=== PATIENT | male | born 1950 | race Caucasian/White ===

== ENCOUNTER 2017-04-29 22:34 | Inpatient (IN) | payer MEDICARE, MEDICAID ==
[~2017-04-29] VITALS: Ht 177.8 cm; Wt 65.5 kg
[~2017-04-29 22:34] MED LIST: DIGO50SO PO; LOVASTATIN PO; NITR0.4T6 PO; TAMS-12 PO; WARF4TAB41 PO
[2017-04-30] VITALS (7 sets, daily range): BP systolic 103–151; BP diastolic 51–87
[2017-04-30] MEDS ORDERED: IV NS 0.9% 1,000 ML IV PRN (00:02)
[2017-04-30] MEDS ORDERED: ENOXAPARIN SODIUM 40 MG/0.4 ML DISP.SYRIN SQ SCH (00:30)
[2017-04-30] MEDS ORDERED: ONDANSETRON HCL/PF 4 MG/2 ML VIAL IVP PRN (00:30)
[2017-04-30] MEDS ORDERED: SPIR25TA PO (03:41)
[2017-04-30] MEDS ORDERED: BENA20TA2 PO (03:47)
[2017-04-30] MEDS ORDERED: RIVA10TA PO (03:47)
[2017-04-30] MEDS ORDERED: METO100T3 PO (03:47)
[2017-04-30] MEDS ORDERED: NITROGLYCERIN PACKET 1 GM PACKET ONE (06:08)
[2017-04-30] MEDS: NITROGLYCERIN 30 GM TUBE TP SCH ×4 (06:13→23:32)
[2017-04-30] MEDS ORDERED: HYDROMORPHONE INJ 2 MG/ML DISP.SYRIN IV PRN (06:30)
[2017-04-30 07:17] LABS: BASOPHILS % (AUTO) 0.7 % (0.0-2.0); EOSINOPHILS # (AUTO) 0.1 /CMM (0.0-0.7); HEMATOCRIT 34 % (39-51); HEMOGLOBIN 11.7 g/dL (13.5-17.5); LYMPHOCYTES # (AUTO) 1.7 /CMM (0.8-4.8); LYMPHOCYTES % (AUTO) 33.9 % (20.0-44.0); MEAN CORPUSCULAR HEMOGLOBIN 33 PG (26.0-33.0); MEAN CORPUSCULAR HGB CONC 34 g/dl (31.0-36.0); MEAN CORPUSCULAR VOLUME 96 fL (80-96); MONOCYTES # (AUTO) 0.5 /CMM (0.1-1.30); MONOCYTES % (AUTO) 10.5 % (2.0-12.0); NEUTROPHILS # (AUTO) 2.5 /CMM (1.8-8.9); NEUTROPHILS % (AUTO) 51.9 % (43.0-81.0); PLATELET COUNT (AUTO) 238 /CMM (150-450); RDW COEFFICIENT OF VARIATION 13.6 (11.5-15.0); RED BLOOD CELL COUNT(AUTO) 3.58 MIL/uL (4.5-6.0); WHITE BLOOD COUNT (AUTO) 4.9 K/uL (4.3-11.0)
[2017-04-30 08:12] LABS: CREATININE 2.2 mg/dL (0.6-1.3); MAGNESIUM 2.1 mg/dL (1.8-2.4); PHOSPHORUS 3.3 mg/dL (2.5-4.9); POTASSIUM 4.1 mmol/L (3.5-5.1)
[2017-04-30 08:26] LABS: ALBUMIN 3.6 g/dL (3.4-5.0); BILIRUBIN,DIRECT 0.1 mg/dL (0.0-0.2); BILIRUBIN,TOTAL 0.3 mg/dL (0.2-1.0); TOTAL PROTEIN, SERUM 7.3 g/dL (6.4-8.2)
[2017-04-30] MEDS: FUROSEMIDE 40 MG TABLET PO SCH (08:56)
[2017-04-30] MEDS: VALSARTAN 40 MG TABLET PO SCH (08:56)
[2017-04-30] MEDS: CARVEDILOL 6.25 MG TABLET PO SCH ×2 (08:56→21:00)
[2017-04-30] MEDS ORDERED: ASPIRIN EC 81 MG TABLET.DR PO SCH (09:00)
[2017-04-30] MEDS ORDERED: REGADENOSON 0.4 MG/5 ML DISP.SYRIN IVP ONE (11:00)
[2017-04-30 13:25] LABS: APPEARANCE,URINE CLEAR (CLEAR); BILIRUBIN,URINE NEGATIVE (NEGATIVE); BLOOD, URINE NEGATIVE Ery/uL (NEGATIVE); COLOR,URINE YELLOW (YELLOW); KETONES,URINE NEGATIVE (NEGATIVE); LEUKOCYTE ESTERASE ,URINE NEGATIVE (NEGATIVE); NITRITE, URINE NEGATIVE (NEGATIVE); PROTEIN,URINE NEGATIVE (NEGATIVE); UGLUCOSE NEGATIVE (NEGATIVE); UROBILINOGEN,URINE 0.2 EU/dL (0.2)
[2017-04-30] MEDS: RIVAROXABAN 10 MG TABLET PO SCH (16:49)
[2017-04-30] MEDS: TAMSULOSIN 0.4 MG CAP.SR.24H PO SCH (22:03)
[2017-04-30] MEDS: ACETAMINOPHEN 325 MG TABLET PO PRN (23:37)
[2017-05-01] VITALS: BP 114/69
[2017-05-01 05:34] VITALS: BP 112/65
[2017-05-01] MEDS: NITROGLYCERIN 30 GM TUBE TP SCH ×3 (06:00→18:00)
[2017-05-01 08:00] VITALS: BP 115/73
[2017-05-01] MEDS: FUROSEMIDE 40 MG TABLET PO SCH (09:09)
[2017-05-01] MEDS: CARVEDILOL 6.25 MG TABLET PO SCH ×2 (09:09→21:19)
[2017-05-01] MEDS: VALSARTAN 40 MG TABLET PO SCH (09:10)
[2017-05-01] MEDS: ACETAMINOPHEN 325 MG TABLET PO PRN ×2 (13:49→21:54)
[2017-05-01 14:14] LABS: BASOPHILS % (AUTO) 1.1 % (0.0-2.0); EOSINOPHILS # (AUTO) 0.1 /CMM (0.0-0.7); EOSINOPHILS % (AUTO) 2.2 % (0.0-6.0); HEMATOCRIT 36 % (39-51); HEMOGLOBIN 12.4 g/dL (13.5-17.5); LYMPHOCYTES # (AUTO) 1.3 /CMM (0.8-4.8); LYMPHOCYTES % (AUTO) 28.8 % (20.0-44.0); MEAN CORPUSCULAR HEMOGLOBIN 33 PG (26.0-33.0); MEAN CORPUSCULAR HGB CONC 34 g/dl (31.0-36.0); MEAN CORPUSCULAR VOLUME 96 fL (80-96); MONOCYTES # (AUTO) 0.4 /CMM (0.1-1.30); MONOCYTES % (AUTO) 9.5 % (2.0-12.0); NEUTROPHILS # (AUTO) 2.7 /CMM (1.8-8.9); NEUTROPHILS % (AUTO) 58.4 % (43.0-81.0); PLATELET COUNT (AUTO) 278 /CMM (150-450); RDW COEFFICIENT OF VARIATION 13.8 (11.5-15.0); RED BLOOD CELL COUNT(AUTO) 3.79 MIL/uL (4.5-6.0); WHITE BLOOD COUNT (AUTO) 4.5 K/uL (4.3-11.0)
[2017-05-01 14:32] LABS: CALCIUM, SERUM 9.6 mg/dL (8.5-10.1); CREATININE 1.6 mg/dL (0.6-1.3); MAGNESIUM 1.6 mg/dL (1.8-2.4); POTASSIUM 4.4 mmol/L (3.5-5.1)
[2017-05-01 14:33] LABS: IRON, SERUM 86 ug/dl (50-175); TOTAL IRON BINDING CAPACITY 342 ug/dl (250-450)
[2017-05-01 14:40] LABS: THYROID STIMULATING HORMONE 3.457 uIU/mL (0.358-3.74)
[2017-05-01 16:00] VITALS: BP 119/72
[2017-05-01] MEDS ORDERED: Magnesium 1GM/D5W 100ML PREMIX 100 ML IV SCH (16:48)
[2017-05-01] MEDS: MUPIROCIN OINT 2% 22 GM TUBE SCH ×2 (17:05→21:20)
[2017-05-01] MEDS: RIVAROXABAN 10 MG TABLET PO SCH (17:06)
[2017-05-01 20:00] VITALS: BP 106/59
[2017-05-01] MEDS: TAMSULOSIN 0.4 MG CAP.SR.24H PO SCH (21:18)
[2017-05-01] MEDS: ZOLPIDEM TARTRATE 5 MG TABLET PO PRN (21:51)
[2017-05-02] MEDS: NITROGLYCERIN 30 GM TUBE TP SCH ×4 (05:56→16:37)
[2017-05-02 08:00] VITALS: BP 119/69
[2017-05-02] MEDS: CARVEDILOL 6.25 MG TABLET PO SCH ×2 (09:22→21:00)
[2017-05-02] MEDS: FUROSEMIDE 40 MG TABLET PO SCH (09:22)
[2017-05-02] MEDS: VALSARTAN 40 MG TABLET PO SCH (09:22)
[2017-05-02] MEDS: MUPIROCIN OINT 2% 22 GM TUBE SCH ×2 (09:23→21:53)
[2017-05-02] MEDS: ACETAMINOPHEN 325 MG TABLET PO PRN ×2 (11:17→21:54)
[2017-05-02 12:06] LABS: BASOPHILS % (AUTO) 1.1 % (0.0-2.0); EOSINOPHILS # (AUTO) 0.1 /CMM (0.0-0.7); EOSINOPHILS % (AUTO) 2.4 % (0.0-6.0); HEMATOCRIT 39 % (39-51); HEMOGLOBIN 13.1 g/dL (13.5-17.5); LYMPHOCYTES # (AUTO) 1.3 /CMM (0.8-4.8); LYMPHOCYTES % (AUTO) 28.7 % (20.0-44.0); MEAN CORPUSCULAR HEMOGLOBIN 32 PG (26.0-33.0); MEAN CORPUSCULAR HGB CONC 34 g/dl (31.0-36.0); MEAN CORPUSCULAR VOLUME 96 fL (80-96); MONOCYTES # (AUTO) 0.4 /CMM (0.1-1.30); MONOCYTES % (AUTO) 9.5 % (2.0-12.0); NEUTROPHILS # (AUTO) 2.5 /CMM (1.8-8.9); NEUTROPHILS % (AUTO) 58.3 % (43.0-81.0); PLATELET COUNT (AUTO) 276 /CMM (150-450); RDW COEFFICIENT OF VARIATION 13.6 (11.5-15.0); RED BLOOD CELL COUNT(AUTO) 4.04 MIL/uL (4.5-6.0); WHITE BLOOD COUNT (AUTO) 4.4 K/uL (4.3-11.0)
[2017-05-02 12:18] LABS: CALCIUM, SERUM 9.3 mg/dL (8.5-10.1); CREATININE 1.5 mg/dL (0.6-1.3); MAGNESIUM 1.8 mg/dL (1.8-2.4); PHOSPHORUS 3.6 mg/dL (2.5-4.9); POTASSIUM 4.3 mmol/L (3.5-5.1)
[2017-05-02 16:00] VITALS: BP 124/78
[2017-05-02] MEDS: RIVAROXABAN 10 MG TABLET PO SCH (16:37)
[2017-05-02 20:00] VITALS: BP 103/61
[2017-05-02] MEDS: ZOLPIDEM TARTRATE 5 MG TABLET PO PRN (21:53)
[2017-05-02] MEDS: TAMSULOSIN 0.4 MG CAP.SR.24H PO SCH (21:54)
[2017-05-03] MEDS: NITROGLYCERIN 30 GM TUBE TP SCH ×4 (05:14→17:55)
[2017-05-03 08:00] VITALS: BP 109/62
[2017-05-03] MEDS: CARVEDILOL 6.25 MG TABLET PO SCH ×2 (08:37→22:33)
[2017-05-03] MEDS: VALSARTAN 40 MG TABLET PO SCH (08:37)
[2017-05-03] MEDS: MULTIVITAMINS,THERAGRAN 1 UDTAB TABLET PO SCH (08:43)
[2017-05-03] MEDS: FUROSEMIDE 40 MG TABLET PO SCH (08:43)
[2017-05-03] MEDS: MUPIROCIN OINT 2% 22 GM TUBE SCH ×2 (08:44→21:00)
[2017-05-03 09:43] LABS: BASOPHILS % (AUTO) 0.6 % (0.0-2.0); EOSINOPHILS # (AUTO) 0.1 /CMM (0.0-0.7); EOSINOPHILS % (AUTO) 3.1 % (0.0-6.0); HEMATOCRIT 40 % (39-51); HEMOGLOBIN 13.4 g/dL (13.5-17.5); LYMPHOCYTES # (AUTO) 1.4 /CMM (0.8-4.8); LYMPHOCYTES % (AUTO) 32.2 % (20.0-44.0); MEAN CORPUSCULAR HEMOGLOBIN 32 PG (26.0-33.0); MEAN CORPUSCULAR HGB CONC 34 g/dl (31.0-36.0); MEAN CORPUSCULAR VOLUME 96 fL (80-96); MONOCYTES # (AUTO) 0.4 /CMM (0.1-1.30); MONOCYTES % (AUTO) 8.4 % (2.0-12.0); NEUTROPHILS # (AUTO) 2.5 /CMM (1.8-8.9); NEUTROPHILS % (AUTO) 55.7 % (43.0-81.0); PLATELET COUNT (AUTO) 272 /CMM (150-450); RDW COEFFICIENT OF VARIATION 13.5 (11.5-15.0); RED BLOOD CELL COUNT(AUTO) 4.16 MIL/uL (4.5-6.0); WHITE BLOOD COUNT (AUTO) 4.5 K/uL (4.3-11.0)
[2017-05-03 09:55] LABS: CALCIUM, SERUM 9.4 mg/dL (8.5-10.1); CREATININE 1.9 mg/dL (0.6-1.3); MAGNESIUM 1.8 mg/dL (1.8-2.4); PHOSPHORUS 3.1 mg/dL (2.5-4.9); POTASSIUM 3.9 mmol/L (3.5-5.1)
[2017-05-03 16:00] VITALS: BP 110/69
[2017-05-03] MEDS: RIVAROXABAN 10 MG TABLET PO SCH (16:16)
[2017-05-03 20:00] VITALS: BP 142/93
[2017-05-03] MEDS: TAMSULOSIN 0.4 MG CAP.SR.24H PO SCH (22:32)
[2017-05-04] MEDS: NITROGLYCERIN 30 GM TUBE TP SCH ×3 (06:00→12:00)
[2017-05-04 08:00] VITALS: BP 119/71
[2017-05-04] MEDS: VALSARTAN 40 MG TABLET PO SCH (09:03)
[2017-05-04] MEDS: FUROSEMIDE 40 MG TABLET PO SCH (09:03)
[2017-05-04] MEDS: MULTIVITAMINS,THERAGRAN 1 UDTAB TABLET PO SCH (09:03)
[2017-05-04] MEDS: CARVEDILOL 6.25 MG TABLET PO SCH (09:04)
[2017-05-04] MEDS: MUPIROCIN OINT 2% 22 GM TUBE SCH (09:04)
[2017-05-04 12:00] VITALS: BP 115/58
[2017-05-04] MEDS ORDERED: VALS40TA4 PO (12:13)
[2017-05-04] MEDS ORDERED: FURO40TA5 PO (12:13)
== END 2017-05-04 16:00 | disposition home health service (06) | DRG 205 ==
LOC: TELE 04-30 00:37 → MED 04-30 12:23
PROVIDERS: ADMIT Nurse Practitioner Acute Care; ATTEND Nurse Practitioner Acute Care
DX: M94.0 Chondrocostal junction syndrome [Tietze] (principal); N17.0 Acute kidney failure with tubular necrosis; D68.59 Other primary thrombophilia; I42.9 Cardiomyopathy, unspecified; I50.42 Chronic combined systolic (congestive) and diastolic (congestive) heart failure; I48.91 Unspecified atrial fibrillation; I13.0 Hypertensive heart and chronic kidney disease with heart failure and stage 1 through stage 4 chronic kidney disease, or unspecified chronic kidney disease; I48.92 Unspecified atrial flutter; D64.9 Anemia, unspecified; F17.210 Nicotine dependence, cigarettes, uncomplicated; Z79.01 Long term (current) use of anticoagulants; Z95.810 Presence of automatic (implantable) cardiac defibrillator; D63.8 Anemia in other chronic diseases classified elsewhere; J06.9 Acute upper respiratory infection, unspecified; S91.309A Unspecified open wound, unspecified foot, initial encounter; X58.XXXA Exposure to other specified factors, initial encounter; Y93.9 Activity, unspecified; Y92.009 Unspecified place in unspecified non-institutional (private) residence as the place of occurrence of the external cause
CPT/HCPCS: 36415; 71010-TC; 76770-TC; 80048-TC; 80061-TC; 80076-TC; 81000-TC; 83540-TC; 83735-TC; 84100-TC; 84443-TC; 84484-TC; 85025-TC; 87081-TC; 87400; 93307-TC; 93970-TC; A9502; J2785; J3475; J7030; J7050; Z7610

== ENCOUNTER 2017-06-03 22:43 | Inpatient (IN) | payer MEDICARE, MEDICAID ==
[~2017-06-03] VITALS: Ht 177.8 cm; Wt 64.4 kg
[~2017-06-03 22:43] MED LIST changes: -DIGO50SO PO; +FURO40TA5 PO; -LOVASTATIN PO; +METO100T3 PO; +RIVA10TA PO; +VALS40TA4 PO; -WARF4TAB41 PO
--- NOTE | 2017-06-03 22:50 | NUR ---
PATIENT RECEIVED VIA EMS WITH CHEST PAIN OF 5/10 NON RADIATING NEAR HEART. NO SOB NOTED WITH ADEQUATE CHEST RISE/FALL. A/O X2 CONFUSED. A-FIB ON THE TELE. WILL CONTINUE TO MONITOR FOR ANY CHANGES.
[2017-06-03] MEDS ORDERED: DILTIAZEM HCL 50 MG IV IV ONE (23:00)
[2017-06-03] MEDS ORDERED: DILTIAZEM HCL 25 MG IV ONE ×2 (23:00→23:20)
--- NOTE | 2017-06-03 23:11 | NUR ---
LAB AT BEDSIDE FOR DRAW
[2017-06-03] MEDS ORDERED: DILTIAZEM HCL 50 MG IV ONE (23:19)
[2017-06-03 23:22] LABS: BASOPHILS % (AUTO) 0.6 % (0.0-2.0); EOSINOPHILS # (AUTO) 0.1 /CMM (0.0-0.7); EOSINOPHILS % (AUTO) 1.4 % (0.0-6.0); HEMATOCRIT 38 % (39-51); HEMOGLOBIN 12.9 g/dL (13.5-17.5); LYMPHOCYTES % (AUTO) 37.3 % (20.0-44.0); MEAN CORPUSCULAR HEMOGLOBIN 32 PG (26.0-33.0); MEAN CORPUSCULAR HGB CONC 34 g/dl (31.0-36.0); MEAN CORPUSCULAR VOLUME 95 fL (80-96); MONOCYTES # (AUTO) 0.7 /CMM (0.1-1.30); MONOCYTES % (AUTO) 12.4 % (2.0-12.0); NEUTROPHILS # (AUTO) 2.6 /CMM (1.8-8.9); NEUTROPHILS % (AUTO) 48.3 % (43.0-81.0); PLATELET COUNT (AUTO) 264 /CMM (150-450); RDW COEFFICIENT OF VARIATION 13.2 (11.5-15.0); RED BLOOD CELL COUNT(AUTO) 4.07 MIL/uL (4.5-6.0); WHITE BLOOD COUNT (AUTO) 5.4 K/uL (4.3-11.0)
[2017-06-03] MEDS ORDERED: DILTIAZEM HCL IV 125 MG in IV D5W 100 ML IV PRN (23:30)
[2017-06-03 23:33] LABS: CALCIUM, SERUM 9.3 mg/dL (8.5-10.1); CARBON DIOXIDE 27 mmol/L (21-32); CHLORIDE 108 mmol/L (98-107); CREATININE 1.7 mg/dL (0.6-1.3); GLUCOSE 115 mg/dL (74-106); POTASSIUM 3.8 mmol/L (3.5-5.1); SODIUM SERUM 144 mmol/L (136-145); UREA NITROGEN, BLOOD 28 mg/dL (7-18)
[2017-06-03 23:41] LABS: TROPONIN I < 0.017 ng/mL (0.00-0.056)
[2017-06-03 23:50] LABS: D-DIMER 0.49 mg/L(FEU (0.17-0.50); INR 0.97 (0.87-1.13); PROTHROMBIN TIME 10.1 SECS (9.5-12.7)
--- NOTE | 2017-06-04 00:15 | NUR ---
er spoke to sadi malone regarding pt admission.
[2017-06-04] MEDS ORDERED: Z GUARD REMEDY 2 OZ OINT TP PRN (00:30)
[2017-06-04] MEDS ORDERED: HYDROCODONE/APAP 5/325MG 1 EACH TABLET PO PRN (00:30)
[2017-06-04] MEDS ORDERED: MAG HYDROX/AL HYDROX/SIMETH 30 ML UDC PO PRN (00:30)
[2017-06-04] MEDS ORDERED: ACETAMINOPHEN 325 MG TABLET PO PRN (00:30)
[2017-06-04] MEDS ORDERED: MAGNESIUM HYDROXIDE 30 ML UDC PO PRN (00:30)
[2017-06-04] MEDS ORDERED: ONDANSETRON HCL/PF 4 MG/2 ML VIAL IVP PRN (00:30)
--- NOTE | 2017-06-04 01:40 | NUR ---
PATIENT WITH NO C/O PAIN. NO SOB NOTED WITH ADEQUATE CHEST RISE/FALL. VITALS WNL. WILL CONTINUE TO MONITOR FOR ANY CHANGES UNTIL TRANSFER
--- NOTE | 2017-06-04 01:45 | NUR ---
REPORT GIVEN TO EDMUNDO. WILL TRANSFER PATIENT TO [facility] ROOM 112-1 NOW.
[2017-06-04 02:00] VITALS: BP 116/66
--- NOTE | 2017-06-04 02:30 | NUR ---
RN NOTE SPOKE TO CAMILO BRO NP AND NOTIFIED THAT PT HR IS CONTROLLED AFIB @ 70. TOLD TO KEEP CARDIZEM DRIP @ 15MG/HR. READ BACK ORDERS AND WILL KEEP PT ON CARDIZEM DRIP @ 15MG/HR.
[2017-06-04 04:00] VITALS: BP 151/85
--- NOTE | 2017-06-04 06:48 | NUR ---
RN NOTES WILL ENDORSE TO DAY SHIFT THAT PATIENT CAME FROM THE ER WITH THE CARDIZEM IV BAG AND WAS NOT SCANNED IN THE [facility]. BAG STILL INFUSING
[2017-06-04] MEDS ORDERED: VALS40TA4 PO (07:31)
[2017-06-04] MEDS ORDERED: METO25TA6 PO (07:31)
[2017-06-04] MEDS ORDERED: AMIO200T2 PO (07:31)
[2017-06-04] MEDS ORDERED: FURO40TA5 PO (07:31)
[2017-06-04 08:00] VITALS: BP 138/79
[2017-06-04] MEDS ORDERED: DILTIAZEM HCL 25 MG IV IV PRN (08:30)
--- NOTE | 2017-06-04 09:27 | NUR ---
DISCUSSED THOROUGHLY WITH PT ABOUT CODE STATUS PM SHIFT RN AT BEDSIDE TOO A WITNESS, PT WANTS FULL CODE TREATMENT INCLUDING CPR AND INTUBATION IN CASE OF EMERGENCY. ORDERS PLACED.
--- NOTE | 2017-06-04 09:47 | NUR ---
PT REFUSING TO BE CONNECTED TO CARDIZEM DRIP. HE IS AMBULATING AND STATES "I CANNOT STAY STILL." STEADY GAIT, SOMEWHAT ANXIOUS BUT NON AGGRESSIVE. I EXPLAINED TO HIM IN DEPTH WHAT THE DRIP IF FOR AND HOW IT WILL HELP TO TREAT HIS INITIAL C/O OF CHEST PAIN AND HOSPITAL DIAGNOSIS, HE STATES HE WANTS TO GO AND IS THINKING OF SIGNING AMA, ENCOURAGED HIM TO STAY FOR TREATMENT AND THAT ONE NIGHT OF TREATMENT MAY NOT BE ENOUGH TO FIND THE REASON FOR HIS CHEST PAIN.
--- NOTE | 2017-06-04 10:08 | NUR ---
PT KEEP PULLING OFF LEADS FROM PORTABLE BILLING CLERK. I EXPLAINED TO HIM WHAT IT IS FOR AND ITS IMPORTANCE IN SHOWING US HIS HEART RHYTHM AND RATE. HE AGREED EARLIER THIS MORNING TO KEEP IT ON (2ND TIME IM RECONNECTING THE LEADS), BUT HE STILL REMOVED IT. NOTED HE IS ANXIOUS EASILY AGITATED, BUT NON AGGRESSIVE AT THIS TIME.
--- NOTE | 2017-06-04 10:39 | NUR ---
PT REMOVED THE WHOLE TELEMETRY BOX, HE IS REFUSING TO LET ME PUT IT BACK ON, SAYING HE CANNOT DO ANYTING WITH THAT THING ON. HE IS PACING THE ROOM. STRANGE ACTIVITY, VITALS ARE STABLE. NO SIGNS OF DISTRESS, BUT HE IS EASILY AGITATED AT THIS POINT.
[2017-06-04] MEDS ORDERED: VALSARTAN 40 MG TABLET PO SCH (11:00)
[2017-06-04] MEDS ORDERED: RIVAROXABAN 10 MG TABLET PO SCH (11:00)
[2017-06-04] MEDS ORDERED: FUROSEMIDE 40 MG TABLET PO SCH (11:00)
[2017-06-04] MEDS: METOPROLOL TARTRATE 25 MG TABLET PO SCH ×2 (11:33→16:50)
--- NOTE | 2017-06-04 11:46 | NUR ---
Social service consult requested by Dr. Hastings for homelessness. Pt. is a 66 year old male who was admitted to [facility] for chest pain. Pt. is alert and oriented x 4. SW is familiar with pt. from a previous admission. Pt. is cooperative and pleasant during the assessment. Pt. receives approximately $770 in SSI per month. Pt. states he would like placement. SW informed oil field caser Ferny that pt. is interested in going to [facility]. Pt. denies using drugs at this time. Pt. used to use cocaine in the past. Pt. drinks approximately 2 to 3 beers every few weeks. Pt. denies suicidal/homicidal ideations and visual/auditory hallucinations at this time. No other social service needs are requested at this time. SW is available if needed. field project manager to arrange for SNF placement.
--- NOTE | 2017-06-04 12:26 | NUR ---
PT REQUESTING TO SIGN AMA. I EXPLAINED TO HIM THE IMPORTANCE OF HIS TREATMENTS EXTENSIVELY. HE IS SEVERELY FOCUSED ON HIS MONEY STATING THAT HIS FRIEND HAS HIS MONEY AND THAT HE NEEDS TO GO GET IT FROM HIM. PAGING FOR PRIMARY MD TO NOTIFY. Addendum: 06/04/17 at 1307 by VIRAL GOMEZ RN PT CHANGES HIS MIND, AFTER SEEING LUNCH IN PLACE. HE HAS HIS PANTS ON BUT DOES NOT WANT OT PUT HIS BELT ON SO IT KEEPS FALLING DOWN, EASILY AGITATED WHEN I OFFERED TO HELP HIM PLACE THE BELT TO KEEP HIS PANTS UP. I ASKED DR. CHINO IF HE WANTS A PSYCH CONSULT MD STATES ITS NOT NECESSARY AT THIS POINT BUT TO KEEP A CLOSE EYE ON HIM.
[2017-06-04 16:00] VITALS: BP 144/83
[2017-06-04 16:50] VITALS: BP 144/83
--- NOTE | 2017-06-04 17:58 | NUR ---
PT AGITATED AND STATES THAT HE JUST WANTS TO LEAVE AMA, HE PACKED ALL OF HIS BELONGINGS DRESSED HIMSELF AND WALKS OUT, I'VE BEEN EXPLAINING TO HIM ENCOURAGING HIM TO STAY ALL DAY BUT HE IS FOCUSED ON TRYING TO FIND HIS MONEY WHICH HE STATES THAT HIS FRIEND HAS AND HE HAS TO GO. HELD HIM LONG ENOUGH TO HAVE HIM SIGN THE AMA FORM, I WENT TO GET SUPPLIES TO DC IV AND REMOVE ARM BAND AND PT LEFT THE ROOM BY THE TIME I GOT BACK. WENT TO LOBBY TO SEARCH FOR HIM BUT HE WAS NOT THERE.
--- NOTE | 2017-06-04 18:07 | NUR ---
SECURITY NOTIFIED OF AMA PATIENT WITH THE ID, AND THEY DID ROUND BUT ARE UNABLE TO LOCATE THE PATIENT. NOTIFIED SOFTWARE PACKAGING ENGINEER LEXI WHO SAID TO CALL [employer] TO REPORT THE INCIDENT DUE TO HIM STILL HAVING AN IV AND ARM BAND. CALLED [phone] AND REPORTED THE INCIDENT TO [facility][id number] WHO STATED BECAUSE HE DOES NOT HAVE AN ADDRESS THEY WILL BROADCAST THE DESCRIPTION OF THE PATIENT TO DISPATCH. [employer] INFO INCIDENT REFERENCE NUMBER: [id number] STONE CARVER ID NUMBER: [id number] HOSPITAL INCIDENT REPORT ALSO FILED.
--- NOTE | 2017-06-04 18:36 | NUR ---
ALSO NOTIFIED ER CHARGE NURSE IF THE PATIENT COMES BACK INTO ER BY CHANGE TO DC THE IV. GAVE A DESCRIPTION AND PT NAME.
[2017-06-05] MEDS ORDERED: TAMSULOSIN 0.4 MG CAP.SR.24H PO SCH (09:00)
== END 2017-06-04 17:56 | disposition left against medical advice (07) | DRG 308 ==
LOC: ER 22:43 → TELE-TD 06-04 00:36 → MEDSG1 06-04 12:13
PROVIDERS: ADMIT Nurse Practitioner Acute Care; ATTEND Nurse Practitioner Acute Care
DX: I48.91 Unspecified atrial fibrillation (principal); N17.0 Acute kidney failure with tubular necrosis; I50.22 Chronic systolic (congestive) heart failure; I11.0 Hypertensive heart disease with heart failure; Z95.1 Presence of aortocoronary bypass graft; Z95.810 Presence of automatic (implantable) cardiac defibrillator; F17.210 Nicotine dependence, cigarettes, uncomplicated; Z91.14 Patient's other noncompliance with medication regimen; R07.9 Chest pain, unspecified
CPT/HCPCS: 36415; 71010-TC; 80048-TC; 84484-TC; 85025-TC; 85378-TC; 85730-TC; 87081-TC; J3490; J7060; Z7610

== ENCOUNTER 2017-12-17 01:39 | Inpatient (IN) | payer MEDICARE, MEDICAID ==
[~2017-12-17] VITALS: Ht 177.8 cm; Wt 72.6 kg
[~2017-12-17 01:39] MED LIST changes: +AMIO200T2 PO; -METO100T3 PO; +METO25TA6 PO; +NITR0.4T48 PO; -NITR0.4T6 PO
--- NOTE | 2017-12-17 02:00 | NUR ---
[address] FOR INTERMITENT PRESSURE LIKE CHEST PAIN X 2 DAYS. PER RA GAVE ASA 162 AND NITRO SPRAY X3 PAIN 8/10 ON ARRIVAL. PT IS AAOX4. SKIN WNL. PT PLACED ON VENEER DRIER TAILER AND POX, PT NOTED TO BE IN RAPID A-FIB. RESP EVEN AND UNALBORED. NO S/S OF ACUTE DISTRESS NOTED. PT DENIES N/V/D. -DIZZINESS. PT SAFETY AND COMFORT MEASURES IN PLACE. AWAITING MD FOR EVAL.
[2017-12-17 02:15] LABS: BASOPHILS # (AUTO) 0.1 /CMM (0.0-0.2); BASOPHILS % (AUTO) 0.9 % (0.0-2.0); EOSINOPHILS % (AUTO) 0.9 % (0.0-6.0); HEMATOCRIT 37 % (39-51); HEMOGLOBIN 12.7 g/dL (13.5-17.5); LYMPHOCYTES # (AUTO) 1.2 /CMM (0.8-4.8); LYMPHOCYTES % (AUTO) 19.9 % (20.0-44.0); MEAN CORPUSCULAR HEMOGLOBIN 32 PG (26.0-33.0); MEAN CORPUSCULAR HGB CONC 34 g/dl (31.0-36.0); MEAN CORPUSCULAR VOLUME 94 fL (80-96); MONOCYTES # (AUTO) 0.5 /CMM (0.1-1.30); MONOCYTES % (AUTO) 7.9 % (2.0-12.0); NEUTROPHILS # (AUTO) 4.3 /CMM (1.8-8.9); NEUTROPHILS % (AUTO) 70.4 % (43.0-81.0); PLATELET COUNT (AUTO) 305 /CMM (150-450); RED BLOOD CELL COUNT(AUTO) 3.98 MIL/uL (4.5-6.0); WHITE BLOOD COUNT (AUTO) 6.2 K/uL (4.3-11.0)
[2017-12-17 02:28] LABS: CALCIUM, SERUM 8.7 mg/dL (8.5-10.1); CARBON DIOXIDE 21 mmol/L (21-32); CHLORIDE 104 mmol/L (98-107); CREATININE 3.2 mg/dL (0.6-1.3); GLUCOSE 130 mg/dL (74-106); POTASSIUM 3.5 mmol/L (3.5-5.1); SODIUM SERUM 140 mmol/L (136-145); UREA NITROGEN, BLOOD 58 mg/dL (7-18)
[2017-12-17] MEDS ORDERED: IV NS 0.9% 1,000 ML BAG IV ONE ×2 (02:30→05:00)
[2017-12-17 02:41] LABS: TROPONIN I < 0.017 ng/mL (0.00-0.056)
--- NOTE | 2017-12-17 04:50 | NUR ---
REPORT GIVEN TO LEAD DATABASE DEVELOPERCRISTELA PIERCE FOR RUSTAM
[2017-12-17] MEDS ORDERED: MAG HYDROX/AL HYDROX/SIMETH 30 ML UDC PO PRN (05:00)
[2017-12-17] MEDS ORDERED: MAGNESIUM HYDROXIDE 30 ML UDC PO PRN (05:00)
[2017-12-17] MEDS ORDERED: MORPHINE SULFATE INJ 2 MG/ML DISP.SYRIN IV PRN (05:00)
[2017-12-17] MEDS ORDERED: Z GUARD REMEDY 2 OZ OINT TP PRN (05:00)
[2017-12-17] MEDS ORDERED: ONDANSETRON HCL/PF 4 MG/2 ML VIAL IVP PRN (05:00)
[2017-12-17] MEDS ORDERED: METOPROLOL TARTRATE 25 MG TABLET PO PRN (05:00)
[2017-12-17] MEDS ORDERED: ZOLPIDEM TARTRATE 5 MG TABLET PO PRN (05:00)
[2017-12-17] MEDS ORDERED: NITROGLYCERIN 0.4 MG/TAB BOTTLE SL PRN (05:00)
[2017-12-17] MEDS ORDERED: ACETAMINOPHEN 325 MG TABLET PO PRN (05:00)
[2017-12-17 05:30] VITALS: BP 107/63
--- NOTE | 2017-12-17 05:30 | NUR ---
MS RN NOTES RECEIVED PT FROM ER VIA CARLOS, ABLE TO TRANSFER HIMSELF TO BED SAFELY. A/O X 4, VERBALLY RESPONSIVE. NO DISTRESS NOR SOB NOTED AT THIS TIME, RESPIRATION IS EVEN AND UNLABORED,NO SOB NOTED. RIGHT HAND IV SITE, INTACT AND PATENT. NO INFILTRATION NOTED. NO S/S OF PAIN OR DISCOMFORT AT THIS TIME. BODY CHECK DONE, ALL NEEDS AT THIS TIME, ATTENDED AND MET SAFETY PRECAUTIONS OBSERVED. CALL LIGHT WITHIN REACH. WILL ENDORSE TO NEXT SHIFT FOR RUSTAM.
--- NOTE | 2017-12-17 05:35 | NUR ---
PT DENIES ANY CHEST PAIN AT THIS TIME.
--- NOTE | 2017-12-17 06:30 | NUR ---
PT A.FIB , V PACING 96 ON TELE MONITOR AT THIS TIME.
--- NOTE | 2017-12-17 06:50 | NUR ---
FACILITY MANAGER HISTOLOGY NOTES PATIENT RESTING INSIDE ROOM, AWAKE, ALERT AND ORIENTED X 4 . VERBALLY RESPONSIVE AND RESPONDS TO VERBAL STIMULI. RESPIRATION IS EVEN AND UNLABORED. NO SOB OR ACUTE DISTRESS NOTED. PATIENT CALM AND RELAXED. NO CHANGES IN LOC NOTED AT THIS TIME. PATIENT DENIES ANY PAIN OR DISCOMFORT. SAFETY PRECAUTIONS OBSERVED. IV SITE ON RIGHT HAND INTACT AND PATENT. CALL LIGHT WITHIN REACH. WILL ENDORSE TO NEXT SHIFT FOR RUSTAM.
--- NOTE | 2017-12-17 07:28 | NUR ---
AUTOMOBILE GLASS TECHNICIAN NOTES PATIENT RESTING INSIDE ROOM, AWAKE, ALERT AND ORIENTED. VERBALLY RESPONSIVE AND RESPONDS TO VERBAL AND TACTILE STIMULI. BREATHING EVEN AND UNLABORED. NO SOB OR ACUTE DISTRESS NOTED. PATIENT CALM AND RELAXED. NO CHANGES IN LOC NOTED AT THIS TIME. PATIENT DENIES ANY PAIN OR DISCOMFORT. WILL CONTINUE TO MONITOR. BED LOCKED AND IN LOW POSITION. BILATERAL UPPER SIDE RAILS UP AND LOCKED. CALL LIGHT WITHIN EASY REACH
[2017-12-17 08:00] VITALS: BP 144/95
[2017-12-17] MEDS: TAMSULOSIN 0.4 MG CAP.SR.24H PO SCH (08:38)
[2017-12-17] MEDS: METOPROLOL TARTRATE 25 MG TABLET PO SCH ×2 (08:40→16:12)
[2017-12-17] MEDS ORDERED: VALSARTAN 40 MG TABLET PO SCH (09:00)
[2017-12-17] MEDS ORDERED: RIVAROXABAN 10 MG TABLET PO SCH (09:00)
[2017-12-17] MEDS ORDERED: AMIODARONE HCL 200 MG TABLET PO SCH ×2 (09:00)
[2017-12-17] MEDS ORDERED: FUROSEMIDE 40 MG TABLET PO SCH (09:00)
--- NOTE | 2017-12-17 14:22 | NUR ---
Social service consult requested by Dr. Gonzalez for placement. Pt. is a 67 year old male who was admitted to [facility] chest pain. SAMANTHA and casey saw operator Joseph met with pt. bedside. Pt. is alert and oriented x 4. SW is familiar with pt. from previous admissions. Pt. is cooperative and pleasant during the assessment. Pt. receives approximately $770 in SSI per month. Pt. states he is open to SNF placement. manager organizational Joseph to look into pt. being admitted to [facility]. Pt. denies using drugs at this time. Pt. used to use cocaine in the past. Pt. drinks approximately 2 to 3 beers every few weeks. Pt. denies suicidal/homicidal ideations and visual/auditory hallucinations at this time. No other social service needs are requested at this time. SW is available, if needed.
[2017-12-17 16:00] VITALS: BP 106/76
[2017-12-17] MEDS: AMIODARONE HCL 200 MG TABLET PO SCH (16:11)
[2017-12-17] MEDS: RIVAROXABAN 15 MG TABLET PO SCH (16:13)
[2017-12-17 17:16] LABS: APPEARANCE,URINE SL CLOUDY (CLEAR); BILIRUBIN,URINE NEGATIVE (NEGATIVE); BLOOD, URINE NEGATIVE Ery/uL (NEGATIVE); COLOR,URINE YELLOW (YELLOW); KETONES,URINE NEGATIVE (NEGATIVE); LEUKOCYTE ESTERASE ,URINE NEGATIVE (NEGATIVE); NITRITE, URINE NEGATIVE (NEGATIVE); PH,URINE 5.5 (5.0-8.0); PROTEIN,URINE NEGATIVE (NEGATIVE); UGLUCOSE NEGATIVE (NEGATIVE); UROBILINOGEN,URINE 0.2 EU/dL (0.2)
[2017-12-17 17:29] LABS: CREATININE, URINE 136.6 MG/DL (30.0-125.0); URINE TOTAL PROTEIN 14.5 mg/dL (0-11.9)
--- NOTE | 2017-12-17 19:20 | NUR ---
RN INITIAL NOTES; RECEIVED REPORT FROM PASQUALE ARCHIBALD, PT IN BED, AWAKE, A/O X2-3 ON RA RESPIRATION EVEN AND UNLABORED, PT DENIES ANY CHEST [PAIN AT THSI TIME. IV ACCESS ON RIGHT HAND PATENT AND FLUSHING WELL, ON HL. PT REFUSED TO WEAR HOSPITAL GOWN, INSISTED ON WEARING OWN CLOTHING. PLASTIC CNC MACHINE OPERATOR MADE AWARE OF THIS. PT HAS LEFT CW PACEMAKER. DISCUSSED PLAN OF CARE TO THE PT. SAFETY PRECAUTIONS FOR FALL INITIATED, CALL LIGHT IN REACH, WILL CONTINUE MONITORING PT.
--- NOTE | 2017-12-17 19:45 | NUR ---
RN NOTES: PT PASSIVE AND MOST OF THE TIME REFUSED FOR EDUCATION, HE ALSO REFUSED SCD PUMPS, DESPITE PROVIDING EDUCATION.
[2017-12-17 20:00] VITALS: BP 114/70
--- NOTE | 2017-12-17 20:00 | NUR ---
RN NOTES: PT REPORTED GENERALIZED PAIN, 6/10 OFFERED PAIN MEDICATION BUT PT REFUSED, CLAIMED HE'S OKAY, INFORMED PT ABOUT PAIN MEDICATION OPTIONS.
[2017-12-17 20:05] LABS: EOSINOPHIL,URINE None Seen
--- NOTE | 2017-12-18 01:04 | NUR ---
RN NOTES: PROVIDED URINAL FOR THE PT, TO COLLECT URINE SPECIMEN FOR AM LABS, PT AGREE AND UNDERSTAND
--- NOTE | 2017-12-18 01:52 | NUR ---
RN NOTES: COLLECTED URINE SPECIMEN FOR UA PROFILE, URINE SODIUM, CALLED LAB FOR SURGICAL ASST
--- NOTE | 2017-12-18 03:46 | NUR ---
RN NOTES: PT REQUESTED SNACK AT THIS TIME, PROVIDED WITH TUNA SANDWICH AND APPLE JUICE REQUESTED, CONSUMED MEAL 100%, NO ASPIRATION NOTED
[2017-12-18 04:54] LABS: APPEARANCE,URINE CLEAR (CLEAR); BILIRUBIN,URINE NEGATIVE (NEGATIVE); BLOOD, URINE NEGATIVE Ery/uL (NEGATIVE); COLOR,URINE YELLOW (YELLOW); KETONES,URINE NEGATIVE (NEGATIVE); LEUKOCYTE ESTERASE ,URINE NEGATIVE (NEGATIVE); NITRITE, URINE NEGATIVE (NEGATIVE); PH,URINE 5.5 (5.0-8.0); PROTEIN,URINE NEGATIVE (NEGATIVE); UGLUCOSE NEGATIVE (NEGATIVE); UROBILINOGEN,URINE 0.2 EU/dL (0.2)
[2017-12-18 04:58] LABS: CREATININE, URINE 62.9 MG/DL (30.0-125.0); URINE TOTAL PROTEIN 10.2 mg/dL (0-11.9)
[2017-12-18 06:07] LABS: EOSINOPHIL,URINE None Seen
--- NOTE | 2017-12-18 07:00 | NUR ---
RN CLOSING NOTES: PT REMAINS A/O X2-3, ON RA,DENIES ANY CHEST PAIN. IV ACCESS ON RIGHT HAND REMAINS PATENT AND FLUSHING WELL, ON HL. PT STILL REFUSED TO WEAR HOSPITAL GOWN. VS REMAINS STABLE, NEEDS ATTENDED. MANDY SW ON THE CASE. REQUEST FOR COPY OF RECORDS (STRESS TEST FROM [facility]) WAS FAXED YESTERDAY AWAITING FOR RESPONSE/RECORDS. SAFETY PRECAUTIONS FOR FALL REMAINS ENGAGED, CALL LIGHT IN REACH, WILL ENDORSE TO DAY RN FOR CONTINUITY OF CARE.
[2017-12-18 07:22] LABS: BASOPHILS % (AUTO) 0.8 % (0.0-2.0); EOSINOPHILS % (AUTO) 3.9 % (0.0-6.0); HEMATOCRIT 36 % (39-51); HEMOGLOBIN 12.1 g/dL (13.5-17.5); LYMPHOCYTES # (AUTO) 1.4 /CMM (0.8-4.8); LYMPHOCYTES % (AUTO) 34.7 % (20.0-44.0); MEAN CORPUSCULAR HEMOGLOBIN 32 PG (26.0-33.0); MEAN CORPUSCULAR HGB CONC 34 g/dl (31.0-36.0); MEAN CORPUSCULAR VOLUME 94 fL (80-96); MONOCYTES # (AUTO) 0.4 /CMM (0.1-1.30); MONOCYTES % (AUTO) 10.6 % (2.0-12.0); PLATELET COUNT (AUTO) 278 /CMM (150-450); RDW COEFFICIENT OF VARIATION 14.9 (11.5-15.0); RED BLOOD CELL COUNT(AUTO) 3.81 MIL/uL (4.5-6.0)
--- NOTE | 2017-12-18 07:24 | NUR ---
MS RN OPENING NOTES RECEIVED PATIENT IN BED AWAKE AND WATCHING TV. A/O X2-3. RESPONSIVE TO VERBAL AND TACTILE STIMULI, DENIES PAIN OR DISCOMFORTS VOICED AT THIS TIME. ON ROOM AIR, BREATHING EVEN AND UNLABORED. IV ACCESS ON RIGHT HAND INTACT AND PATENT, NO SWELLING OR BLEEDING NOTED AT SITE. SAFETY MEASURES IN PLACE. BED LOCKED AND IN LOW POSITION. BILATERAL UPPER SIDE RAILS UP AND LOCKED. CALL LIGHT WITHIN EASY REACH. WILL CONTINUE TO MONITOR.
[2017-12-18 07:37] LABS: CALCIUM, SERUM 8.9 mg/dL (8.5-10.1); MAGNESIUM 1.8 mg/dL (1.8-2.4); PHOSPHORUS 2.6 mg/dL (2.5-4.9); POTASSIUM 4.2 mmol/L (3.5-5.1)
[2017-12-18 08:00] VITALS: BP 122/62
[2017-12-18] MEDS: TAMSULOSIN 0.4 MG CAP.SR.24H PO SCH (08:19)
[2017-12-18] MEDS: AMIODARONE HCL 200 MG TABLET PO SCH ×2 (08:20→17:00)
[2017-12-18] MEDS: METOPROLOL TARTRATE 25 MG TABLET PO SCH ×2 (08:20→17:00)
--- NOTE | 2017-12-18 14:05 | NUR ---
RN NOTES RECEIVED CALL FROM AGATA ASHRAF OF [facility] MICROBIOLOGY DEP'T THAT PATIENT IS POSITIVE FOR MRSA OF NARES. NATURAL RESOURCE TECHNICIAN RADHA AND CHARGE NURSE JOCELYNE MADE AWARE. CONTACT ISOLATION ENFORCED IMMEDIATELY. WILL CONTINUE TO MONITOR.
[2017-12-18 16:00] VITALS: BP 96/58
[2017-12-18] MEDS: RIVAROXABAN 15 MG TABLET PO SCH (16:53)
[2017-12-18] MEDS: HYDROCODONE/APAP 5/325MG 1 EACH TABLET PO PRN (18:10)
--- NOTE | 2017-12-18 18:53 | NUR ---
MS RN CLOSING NOTES PATIENT AWAKE AND RESTING IN BED AT SEMI-KENNEDY'S POSITION. A/O X3. PT IS AMBULATORY AND ABLE TO TO MAKE NEEDS KNOWN WITH PERIODS OF AGITATION AND CONFUSION NOTED. CONTACT ISOLATION MAINTAINED FOR MRSA OF NARES. ON ROOM AIR, BREATHING EVEN WITH NO SOB NOTED. IV ACCESS ON RIGHT HAND INTACT AND PATENT, FLUSHES WELL. ALL SAFETY MEASURES KEPT IN PLACE. BED LOCKED AND IN LOW POSITION. BILATERAL UPPER SIDE RAILS UP AND LOCKED. CALL LIGHT WITHIN EASY REACH. ALL NEEDS AND CARE ATTENDED WELL. WILL ENDORSE TO CERTIFIED DIETARY MANAGER NURSE FOR CONTINUITY OF CARE.
--- NOTE | 2017-12-18 19:15 | NUR ---
MS RN NOTES RECEIVED PATIENT SITTING UP IN BED, EATING JONA CRACKERS AT THIS TIME. AWAKE, VERBALLY RESPONSIVE. NO DISTRESS, NO SOB AT THIS TIME. BREATHING EVEN AND UNLABORED. IV SITE ON RIGHT HAND INTACT AND PATENT. SAFETY MEASURES IN PLACE. BED LOCKED AND IN LOW POSITION. CALL LIGHT WITHIN EASY REACH. WILL CONTINUE TO MONITOR.
[2017-12-18 20:00] VITALS: BP 101/55
[2017-12-18] MEDS: MUPIROCIN OINT 2% 22 GM TUBE SCH (21:23)
[2017-12-19] MEDS: HYDROCODONE/APAP 5/325MG 1 EACH TABLET PO PRN (06:27)
--- NOTE | 2017-12-19 06:50 | NUR ---
MS RN NOTES PATIENT SITTING UP IN BED AT THIS TIME. AWAKE, VERBALLY RESPONSIVE. NO DISTRESS, NO SOB AT THIS TIME. BREATHING EVEN AND UNLABORED. IV SITE ON RIGHT HAND INTACT AND PATENT. SAFETY MEASURES IN PLACE. BED LOCKED AND IN LOW POSITION. CALL LIGHT WITHIN EASY REACH. WILL ENDORSE TO NEXT SHIFT FOR RUSTAM.
--- NOTE | 2017-12-19 07:30 | NUR ---
RECEIVED PT. THIS AM ALERT AND ORIENTED X2-3.VS STABLE COOPERATIVE.
[2017-12-19 08:09] VITALS: BP 134/69
[2017-12-19] MEDS: MUPIROCIN OINT 2% 22 GM TUBE SCH ×2 (09:34→20:52)
[2017-12-19] MEDS: AMIODARONE HCL 200 MG TABLET PO SCH ×2 (09:35→17:00)
[2017-12-19] MEDS: TAMSULOSIN 0.4 MG CAP.SR.24H PO SCH (09:35)
--- NOTE | 2017-12-19 10:30 | NUR ---
Vincenzo GARCIA FREIGHT WEIGHER IN TO SEE PT.
[2017-12-19] MEDS: METOPROLOL TARTRATE 25 MG TABLET PO SCH ×2 (10:49→17:00)
[2017-12-19 15:59] VITALS: BP 91/53
[2017-12-19] MEDS: RIVAROXABAN 15 MG TABLET PO SCH (17:28)
--- NOTE | 2017-12-19 18:00 | NUR ---
refused bath,gown change and general care.
--- NOTE | 2017-12-19 19:40 | NUR ---
MS RN OPENING NOTES PATIENT IN BED , A/O X3. AWAKE, VERBALLY RESPONSIVE. NO DISTRESS, NO SOB, NO CHEST PAIN AT THIS TIME. BREATHING EVEN AND UNLABORED. IV SITE ON RIGHT HAND INTACT AND PATENT. SAFETY MEASURES IN PLACE. BED LOCKED AND IN LOW POSITION. CALL LIGHT WITHIN REACH. WILL CONTINUE TO MONITOR
[2017-12-19 20:00] VITALS: BP 114/71
[2017-12-20] MEDS: HYDROCODONE/APAP 5/325MG 1 EACH TABLET PO PRN (02:39)
--- NOTE | 2017-12-20 06:30 | NUR ---
MS RN CLOSING NOTES PATIENT SITTING IN BED , A/O X3. AWAKE, VERBALLY RESPONSIVE. NO DISTRESS, NO SOB, NO CHEST PAIN AT THIS TIME. BREATHING EVEN AND UNLABORED.PT ON ROOM AIR . IV SITE ON RIGHT HAND REMOVED DUE TO COMPLAIN OF PAIN AND SWELLING. SAFETY MEASURES IN PLACE. BED LOCKED AND IN LOW POSITION. CALL LIGHT WITHIN REACH. WILL ENDORSE TO DAY SHIFT FOR RUSTAM.
--- NOTE | 2017-12-20 07:17 | NUR ---
PT IV LINE REMOVED DUE TO COMPLAIN OF PAIN AND SWELLING. PT REFUSED A NEW IV LINE .
--- NOTE | 2017-12-20 07:19 | NUR ---
RN NOTES PT IS SITTING UP IN BED, AWAKE AND ALERT, RESTING COMFORTABLY. PT ON RA, RESPIRATIONS ARE EVEN AND UNLABORED. NO IV ACCESS, PT REFUSES TO HAVE IV AT THIS TIME. NO SIGNS OF DISTRESS NOTED. SAFETY MEASURES ARE IN PLACE, CALL LIGHT IS IN REACH. WILL CONTINUE TO MONITOR.
[2017-12-20 08:00] VITALS: BP 131/79
[2017-12-20] MEDS: TAMSULOSIN 0.4 MG CAP.SR.24H PO SCH (08:04)
[2017-12-20] MEDS: MUPIROCIN OINT 2% 22 GM TUBE SCH (08:04)
[2017-12-20] MEDS: AMIODARONE HCL 200 MG TABLET PO SCH (08:05)
[2017-12-20 09:22] VITALS: BP 120/71
[2017-12-20] MEDS: METOPROLOL TARTRATE 25 MG TABLET PO SCH (09:22)
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
== END 2017-12-20 16:00 | disposition left against medical advice (07) | DRG 308 ==
LOC: ER 01:41 → TELE 05:02 → MED 08:57
PROVIDERS: ADMIT Internal Medicine; ATTEND Internal Medicine
DX: I48.91 Unspecified atrial fibrillation (principal); N17.0 Acute kidney failure with tubular necrosis; I13.0 Hypertensive heart and chronic kidney disease with heart failure and stage 1 through stage 4 chronic kidney disease, or unspecified chronic kidney disease; I50.22 Chronic systolic (congestive) heart failure; I47.1 Supraventricular tachycardia; N18.9 Chronic kidney disease, unspecified; N18.3 Chronic kidney disease, stage 3 (moderate); D63.8 Anemia in other chronic diseases classified elsewhere; F17.210 Nicotine dependence, cigarettes, uncomplicated; Z95.810 Presence of automatic (implantable) cardiac defibrillator; R73.9 Hyperglycemia, unspecified; N40.0 Benign prostatic hyperplasia without lower urinary tract symptoms; Z79.01 Long term (current) use of anticoagulants; Z91.14 Patient's other noncompliance with medication regimen; Z71.6 Tobacco abuse counseling; I34.0 Nonrheumatic mitral (valve) insufficiency; I27.20 Pulmonary hypertension, unspecified; M94.0 Chondrocostal junction syndrome [Tietze]
CPT/HCPCS: 36415; 71045-TC; 80048-TC; 80061-TC; 81000-TC; 82306; 82570-TC; 82652; 83735-TC; 83970; 84100-TC; 84155-TC; 84300-TC; 84484-TC; 85025-TC; 87081-TC; 93307-TC; A4606; J7030; Z7610

== ENCOUNTER 2018-03-03 04:06 | Inpatient (IN) | payer MEDICARE, MEDICAID ==
[~2018-03-03] VITALS: Ht 177.8 cm; Wt 68.0 kg
[~2018-03-03 04:06] MED LIST changes: -AMIO200T2 PO; +AMIO200T4 PO; +DIGO125T PO; -FURO40TA5 PO; -VALS40TA4 PO
--- NOTE | 2018-03-03 07:09 | NUR ---
METALSMITH APPRENTICE ADMITTING NOTE Patient came by stretcher by EMS, direct transfer from [place]. He is AAOx4, breathing comfortably on RA with no SOB, and no signs of acute distress. All vitals WNL. Patient reports 2/10 chest discomfort at this time. Patient was made comfortable in bed, oriented to room, and educated on use of the call puckett. Patient care and admission process will be endorsed to day shift RN.
--- NOTE | 2018-03-03 07:10 | NUR ---
ADMISSION NOTE RECEIVED PT. PT IS STABLE AND RESTING IN BED. PT IS A DIRECT TRANSFER FROM [facility]. RECENTLY D/C FROM [facility] X3 DAYS PRIOR. PT HAS C/O CHEST PAIN, NON-RADIATING 2/10 ON PAIN SCALE. BREATHING IS UNLABORED EVEN BILATERALLY. PT TO HAVE F/U WITH CARDIAC CONSULT. SAFETY MEASURES IN PLACE, CALL LIGHT WITHIN REACH. WILL CONTINUE TO MONITOR.
[2018-03-03 08:00] VITALS: BP 117/68
[2018-03-03] MEDS ORDERED: RIVAROXABAN 10 MG TABLET PO SCH (09:30)
[2018-03-03] MEDS ORDERED: METO100T14 PO (09:41)
[2018-03-03 10:31] LABS: CALCIUM, SERUM 8.6 mg/dL (8.5-10.1); CREATININE 1.6 mg/dL (0.6-1.3); POTASSIUM 4.1 mmol/L (3.5-5.1)
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
[2018-03-03] MEDS ORDERED: NITROGLYCERIN 0.4 MG/TAB BOTTLE SL PRN (11:30)
[2018-03-03] MEDS ORDERED: ACETAMINOPHEN 325 MG TABLET PO PRN (11:30)
[2018-03-03] MEDS ORDERED: HYDROCODONE/APAP 5/325MG 1 EACH TABLET PO PRN (11:30)
[2018-03-03] MEDS ORDERED: MAGNESIUM HYDROXIDE 30 ML UDC PO PRN (11:30)
[2018-03-03] MEDS ORDERED: ZOLPIDEM TARTRATE 5 MG TABLET PO PRN (11:30)
[2018-03-03] MEDS ORDERED: ONDANSETRON HCL/PF 4 MG/2 ML VIAL IVP PRN (11:30)
[2018-03-03] MEDS ORDERED: Z GUARD REMEDY 2 OZ OINT TP PRN (11:30)
[2018-03-03] MEDS ORDERED: MORPHINE SULFATE INJ 2 MG/ML DISP.SYRIN IV PRN (11:30)
[2018-03-03] MEDS ORDERED: MAG HYDROX/AL HYDROX/SIMETH 30 ML UDC PO PRN (11:30)
[2018-03-03 16:00] VITALS: BP_SYST 163; BP_SYST 96; BP_DIAS 110; BP_DIAS 54
[2018-03-03] MEDS ORDERED: RIVAROXABAN 15 MG TABLET PO SCH (17:00)
[2018-03-03] MEDS: NEOMY SULF/BACITRAC ZN/POLY 15 GM TUBE TP SCH (18:08)
[2018-03-03 18:17] VITALS: BP 96/54
--- NOTE | 2018-03-03 19:02 | NUR ---
RN CLOSING NOTE PT RESTING IN ROOM. NO S/S OF RESP DISTRESS OR SOB. NO C/O PAIN AT THIS TIME. PT SCHEDULED FOR CT ANGIO OF HEART WITH 3D IMAGING IN AM. PT TO BE NPO AT MIDNIGHT. CONSENT TO BE SIGNED. SAFETY MEASURES IN PLACE, CALL LIGHT WITHIN REACH. WILL ENDORSE TO COMPUTER ANIMATOR FOR RUSTAM.
--- NOTE | 2018-03-03 19:15 | NUR ---
RN OPENING NOTES RECEIVED PT IN BED, AWAKE, ALERT AND ORIENTED X 3, NO SOB, IN NO ACUTE DISTRESS. ALL PATIENT'S NEEDS ATTENDED TO. ON TELE MONITORING WITH V-PACING, RHYTHM @ 70s. PLACED CALL LIGHT WITHIN REACH. BED IN LOW POSITION AND LOCKED IN PLACE. WILL CONTINUE TO MONITOR.
[2018-03-03 20:00] VITALS: BP 108/71
[2018-03-03] MEDS: METOPROLOL TARTRATE 50 MG TABLET PO SCH (21:38)
[2018-03-04] VITALS: BP 102/57
[2018-03-04 04:00] VITALS: BP 105/60
--- NOTE | 2018-03-04 05:00 | NUR ---
RN NOTES SENIOR ACCOUNTING SPECIALIST AT BEDSIDE. PT REFUSED BLOOD DRAW FOR AM LABS. EXPLAINED RISKS AND BENEFITS TO PATIENT X 3 BUT PATIENT VERBALIZED THAT THE DOCTOR TOLD HIM HE IS NOT GOING TO HAVE ANY MORE BLOOD DRAWS.
--- NOTE | 2018-03-04 05:15 | NUR ---
RN NOTES PT WITH VERBALIZED WITH CHEST PAIN 6/10 LEVEL, PAIN LOCATED AT RIGHT SIDE OF CHEST AND NON RADIATING. NOTED PT TO HAVE LOW BP 105/60 HR 71 BPM, APPLIED OXYGEN FOR COMFORT @ 2LPM VIA NC. UPON RECHECKING PT AFTER 15 MIN, PT VERBALIZED THAT PAIN IS NOW 4/10. PT FOUND TO BE ASLEEP AFTER ANOTHER 15 MINUTES. WILL CONTINUE TO MONITOR.
--- NOTE | 2018-03-04 06:22 | NUR ---
AGRICULTURE LABORATORY TECHNICIAN CLOSING NOTES PATIENT IN BED, ASLEEP BUT EASILY AROUSABLE, ALERT AND ORIENTED X 4, NOTED WITH NO SOB, IN NO ACUTE DISTRESS. ALL PATIENT'S NEEDS ATTENDED TO THROUGHOUT THE SHIFT, COMPLIANT WITH CARE AND ABLE TO ASSIST AND PERFORM ADLS. PLACED PT'S BED IN LOW POSITION AND LOCKED IN PLACE. PT ON TELE MONITORING NOTED WITH SR @ 70-80s. WILL ENDORSE TO AM SHIFT NURSE FOR CONTINUITY OF CARE.
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
--- NOTE | 2018-03-04 07:32 | NUR ---
rn opening notes received patient in bed resting, a/ox4, tolerating room air satting at 98%. on telemonitor sr hr 70 with afub and vpacing. no acute distress, no sob. denied pain or discomfort at this time. iv site intact and patent. kept NPO for CT Angio today. bed in low/locked position, siderails upx2, semifowlers, siderails upx2, call light in reach. will continue to monitor accordingly.
[2018-03-04 08:00] VITALS: BP 108/52
[2018-03-04] MEDS ORDERED: IV NS 0.9% 1,000 ML IV PRN (08:06)
[2018-03-04 08:44] LABS: BASOPHILS % (AUTO) 0.3 % (0.0-2.0); EOSINOPHILS % (AUTO) 5.9 % (0.0-6.0); HEMATOCRIT 33 % (39-51); HEMOGLOBIN 10.6 g/dL (13.5-17.5); LYMPHOCYTES # (AUTO) 1.2 /CMM (0.8-4.8); LYMPHOCYTES % (AUTO) 25.8 % (20.0-44.0); MEAN CORPUSCULAR HEMOGLOBIN 30 PG (26.0-33.0); MEAN CORPUSCULAR HGB CONC 33 g/dl (31.0-36.0); MEAN CORPUSCULAR VOLUME 93 fL (80-96); MONOCYTES # (AUTO) 0.4 /CMM (0.1-1.30); MONOCYTES % (AUTO) 9.5 % (2.0-12.0); NEUTROPHILS # (AUTO) 2.7 /CMM (1.8-8.9); NEUTROPHILS % (AUTO) 58.5 % (43.0-81.0); PLATELET COUNT (AUTO) 353 /CMM (150-450); RDW COEFFICIENT OF VARIATION 13.6 (11.5-15.0); RED BLOOD CELL COUNT(AUTO) 3.51 MIL/uL (4.5-6.0); WHITE BLOOD COUNT (AUTO) 4.6 K/uL (4.3-11.0)
--- NOTE | 2018-03-04 08:50 | NUR ---
RN NOTES PATIENT ON NPO. VERIFIED WITH DR LANE IF OK TO TAKE MEDS, PER "ADONIS".
[2018-03-04 08:54] LABS: TROPONIN I < 0.017 ng/mL (0.00-0.056)
[2018-03-04 08:59] LABS: CHOLESTEROL 159 mg/dL (<200); HDL CHOLESTEROL 62 mg/dL (40-60); LDL 89 mg/dL (0-99); THYROID STIMULATING HORMONE 7.912 uIU/mL (0.358-3.74); TRIGLYCERIDES 45 mg/dL (30-150)
[2018-03-04] MEDS ORDERED: DIGOXIN 0.125 MG TABLET PO SCH (09:00)
[2018-03-04] MEDS ORDERED: TAMSULOSIN 0.4 MG CAP.SR.24H PO SCH (09:00)
[2018-03-04] MEDS ORDERED: ASPIRIN EC 81 MG TABLET.DR PO SCH (09:00)
[2018-03-04] MEDS ORDERED: AMIODARONE HCL 200 MG TABLET PO SCH (09:00)
[2018-03-04] MEDS: METOPROLOL TARTRATE 50 MG TABLET PO SCH (09:22)
[2018-03-04 09:23] VITALS: BP 111/59
[2018-03-04] MEDS: NEOMY SULF/BACITRAC ZN/POLY 15 GM TUBE TP SCH (09:26)
[2018-03-04 09:34] LABS: ALANINE AMINOTRANSFERASE 23 U/L (12-78); ALBUMIN 3.6 g/dL (3.4-5.0); ALKALINE PHOSPHATASE 91 U/L (46-116); ASPARTATE AMINOTRANSFERASE 20 U/L (15-37); BILIRUBIN,TOTAL 0.3 mg/dL (0.2-1.0); CALCIUM, SERUM 8.7 mg/dL (8.5-10.1); CARBON DIOXIDE 25 mmol/L (21-32); CHLORIDE 106 mmol/L (98-107); CREATININE 1.6 mg/dL (0.6-1.3); GLUCOSE 101 mg/dL (74-106); MAGNESIUM 2.2 mg/dL (1.8-2.4); PHOSPHORUS 3.1 mg/dL (2.5-4.9); POTASSIUM 4.5 mmol/L (3.5-5.1); SODIUM SERUM 141 mmol/L (136-145); TOTAL PROTEIN, SERUM 7.5 g/dL (6.4-8.2); UREA NITROGEN, BLOOD 33 mg/dL (7-18)
--- NOTE | 2018-03-04 09:59 | NUR ---
PER DR RINALDI, IVF IS ONE TIME ORDER ONLY.
[2018-03-04] MEDS ORDERED: METO50TA16 PO (10:53)
[2018-03-04] MEDS ORDERED: ASPI-1152 PO (10:53)
[2018-03-04] MEDS ORDERED: Rivaroxaban PO (10:53)
[2018-03-04] MEDS ORDERED: IOHEXOL-350 100 ML VIAL IV ONE (11:15)
[2018-03-04] MEDS ORDERED: IV NS 0.9% 250 ML IV ONE (11:15)
[2018-03-04] MEDS ORDERED: CT SWABBABLE VALVE TRANS SET 1 EA INFUS.SET MC ONE (11:15)
[2018-03-04] MEDS ORDERED: METOPROLOL TARTRATE INJ 5 MG/5 ML AMPUL ONE (11:28)
[2018-03-04] MEDS ORDERED: IOHEXOL 50 ML IV ONE (11:38)
--- NOTE | 2018-03-04 15:20 | NUR ---
discharged patient in stable condition, picked up by ambulance crew. dc paperwork given to biology manager. home medications, and all belongings returned and given to patient. report given to CRISTELA Sherman at [facility], discharge instructions given to patient and snf RN, verbalized understanding. removed iv, applied pressure, no bleeding, no complications. removed name band. patient refused skin photos.
== END 2018-03-04 15:20 | disposition home or self-care (01) | DRG 303 ==
LOC: TELE 06:35 → MED 03-04 14:59
DX: I25.10 Atherosclerotic heart disease of native coronary artery without angina pectoris (principal); I13.0 Hypertensive heart and chronic kidney disease with heart failure and stage 1 through stage 4 chronic kidney disease, or unspecified chronic kidney disease; F15.20 Other stimulant dependence, uncomplicated; I50.42 Chronic combined systolic (congestive) and diastolic (congestive) heart failure; D68.59 Other primary thrombophilia; N18.9 Chronic kidney disease, unspecified; F32.9 Major depressive disorder, single episode, unspecified; E78.5 Hyperlipidemia, unspecified; Z91.14 Patient's other noncompliance with medication regimen; Z95.1 Presence of aortocoronary bypass graft; N40.0 Benign prostatic hyperplasia without lower urinary tract symptoms; Z95.810 Presence of automatic (implantable) cardiac defibrillator; I48.91 Unspecified atrial fibrillation; S61.213A Laceration without foreign body of left middle finger without damage to nail, initial encounter; X58.XXXA Exposure to other specified factors, initial encounter; Y92.9 Unspecified place or not applicable; E03.9 Hypothyroidism, unspecified; Z79.01 Long term (current) use of anticoagulants
CPT/HCPCS: 36415; 75574; 80048-TC; 80053-TC; 80061-TC; 83735-TC; 84100-TC; 84443-TC; 84484-TC; 85025-TC; 87081-TC; A4606; J3490; J7030; J7050; Q9967; Z7610

== ENCOUNTER 2018-07-20 11:36 | Inpatient (IN) | payer OTHER, MEDICAID ==
[~2018-07-20] VITALS: Ht 177.8 cm; Wt 73.5 kg
[~2018-07-20 11:36] MED LIST changes: +ASPI-1152 PO; -METO25TA6 PO; +METO50TA16 PO; -RIVA10TA PO; +Rivaroxaban PO
[2018-07-20 12:07] LABS: BASOPHILS # (AUTO) 0.1 /CMM (0.0-0.2); BASOPHILS % (AUTO) 1.5 % (0.0-2.0); HEMATOCRIT 42 % (39-51); LYMPHOCYTES # (AUTO) 1.5 /CMM (0.8-4.8); MEAN CORPUSCULAR HGB CONC 34 g/dl (31.0-36.0); MEAN CORPUSCULAR VOLUME 92 fL (80-96); MONOCYTES # (AUTO) 0.5 /CMM (0.1-1.30); MONOCYTES % (AUTO) 10.4 % (2.0-12.0); NEUTROPHILS # (AUTO) 2.5 /CMM (1.8-8.9); NEUTROPHILS % (AUTO) 52.1 % (43.0-81.0); PLATELET COUNT (AUTO) 250 /CMM (150-450); RED BLOOD CELL COUNT(AUTO) 4.53 MIL/uL (4.5-6.0); WHITE BLOOD COUNT (AUTO) 4.8 K/uL (4.3-11.0)
[2018-07-20] MEDS ORDERED: NITROGLYCERIN 0.4 MG/TAB BOTTLE ONE (12:10)
[2018-07-20 12:17] LABS: CALCIUM, SERUM 9.2 mg/dL (8.5-10.1); CARBON DIOXIDE 29 mmol/L (21-32); CHLORIDE 107 mmol/L (98-107); CREATININE 1.4 mg/dL (0.6-1.3); GLUCOSE 117 mg/dL (74-106); POTASSIUM 3.9 mmol/L (3.5-5.1); SODIUM SERUM 143 mmol/L (136-145); UREA NITROGEN, BLOOD 23 mg/dL (7-18)
[2018-07-20 12:23] LABS: ALANINE AMINOTRANSFERASE 17 U/L (12-78); ALBUMIN 3.8 g/dL (3.4-5.0); ALKALINE PHOSPHATASE 84 U/L (46-116); ASPARTATE AMINOTRANSFERASE 12 U/L (15-37); BILIRUBIN,DIRECT 0.1 mg/dL (0.0-0.2); BILIRUBIN,TOTAL 0.4 mg/dL (0.2-1.0); TOTAL PROTEIN, SERUM 7.7 g/dL (6.4-8.2)
[2018-07-20] MEDS ORDERED: NITROGLYCERIN 0.4 MG/TAB BOTTLE SL ONE (12:30)
[2018-07-20] MEDS ORDERED: HYDROCODONE/APAP 5/325MG 1 EACH TABLET PO ONE (12:30)
--- NOTE | 2018-07-20 12:45 | NUR ---
JAMIE SUBLINGUAL 1ST DOSE AT 1231 BP 11/66 P 74 O2 97% 2ND DOSE AT 1236 BP 111/73 P 70 O2 97 % , CHEST PAIN REDUCED TO 5/10 3RD DOSE 1241 HRS BP 121/62 P 76 O2 97 % CP REDUCED 3/10 PT REPORTS LESS PRESSURE ON CHEST
--- NOTE | 2018-07-20 13:33 | NUR ---
PT BIBS C/O CHEST PAIN,RADIATING SHOULDERS BOTH ARMS - SOB,- BLURRY VISION, - MORENO, - LOC,- -N/V, STEADY GAIT, PT HAS PACER LEFT CHEST
[2018-07-20] MEDS ORDERED: IV NS 0.9% 500 ML IV PRN (14:00)
[2018-07-20] MEDS ORDERED: DOCUSATE SODIUM 100 MG CAPSULE PO PRN (14:00)
[2018-07-20] MEDS ORDERED: ONDANSETRON HCL/PF 4 MG/2 ML VIAL IVP PRN (14:00)
[2018-07-20] MEDS ORDERED: NITROGLYCERIN 0.4 MG/TAB BOTTLE SL PRN ×2 (14:00→22:30)
[2018-07-20] MEDS ORDERED: MAG HYDROX/AL HYDROX/SIMETH 30 ML UDC PO PRN (14:00)
[2018-07-20] MEDS ORDERED: ACETAMINOPHEN 325 MG TABLET PO PRN (14:00)
--- NOTE | 2018-07-20 14:18 | NUR ---
ROOM ASSIGNMENT 109
--- NOTE | 2018-07-20 14:19 | NUR ---
PT IS GOING TO TELE 109, ADMITTED BY DR CHRISTIAN
--- NOTE | 2018-07-20 14:39 | NUR ---
PT BEING TRANSFERRED TO ROOM 109, REPORT GIVEN TO FIDELINA ARCHIBALD, PT STABLE,
[2018-07-20 17:00] VITALS: BP_SYST 142; BP_SYST 157; BP_DIAS 82; BP_DIAS 91
[2018-07-20] MEDS: RIVAROXABAN 15 MG TABLET PO SCH (17:00)
--- NOTE | 2018-07-20 17:00 | NUR ---
ADVANCED ANALYTICS ASSOCIATE NOTE PATIENT RECIEVED FROM ER, ALERT AND ORIENTED X4. HOMELESS BROUGHT SELF TO ER TODAY FOR CHEST PAIN. TIGHTNESS IN CHEST RADIATES TO BOTH SHOULDERS, NO ALLERGIES, NORMAL SINUS RHYTHM, LFT SIDE PACEMAKER, LFT 20 GAUGE IV PATENT AND INTACT, GIVEN NITRO X3 IN ER AT 1230. TROPONIN 0.017 IN ER. CHEST X RAY RESULTED HEART IS MILDLY ENLARGED WITH ATHEROSCLEROSIS. HISTORY OF CARDIOMEGDALY HEPATISIS C AND ATHEROSCLEROSIS. MRSA SWAB DONE BY MERLE NURSE
--- NOTE | 2018-07-20 18:42 | NUR ---
CASE MANAGEMENT CONSULT PATIENT HOMELESS, POSITIVE HEPATITIS C NO ACCESS TO FOOD AND HOUSING, MANAGER PHARMACY CASE MANAGMENT NEEDED
[2018-07-20] MEDS ORDERED: CARV3.122 PO (19:53)
[2018-07-20] MEDS ORDERED: BENA20TA9 PO (19:53)
[2018-07-20] MEDS ORDERED: ISOS30TA6 PO (19:53)
[2018-07-20] MEDS ORDERED: PANT40TA4 PO (19:53)
[2018-07-20] MEDS ORDERED: TRAZ-182 PO (19:53)
[2018-07-20 20:00] VITALS: BP 148/84
--- NOTE | 2018-07-20 20:10 | NUR ---
RN NOTES RECEIVED PATIENT AWAKE ALERT ORIENTED X 3 ABLE TO MAKE KNOWN NEEDS. AWARE REGARDING DSE PROCESS AND PLAN OF CARE. NO APPARENT DISTRESS. BOTH LUNGS CLEAR. DENIES ANY CHEST PAIN AT THIS TIME, AFEBRILE. WITH PACEMAKER BUT NOT SENSING ON MONITOR. PATIENT NOW TRANSFER TO MED SURG FROM TELE. PT IS AMBULATORY WITH [facility], WITH SUPERVISION. IV SITE ON LAC G 20 INTACT AND PATENT WITH GOOD BLOOD RETURN. RADIAL PULSES PRESENT AND PEDAL PULSES STRONG. REMINDED TO USED CALL LIGHT FOR ASSISTANCE. KEPT PT CLEAN AND COMFORTABLE IN BED. WILL CONTINUE TO MONITOR.
[2018-07-20] MEDS: METOPROLOL TARTRATE 50 MG TABLET PO SCH (21:14)
[2018-07-20] MEDS ORDERED: SIMVASTATIN 20 MG TABLET PO SCH (22:00)
[2018-07-21 04:00] VITALS: BP 127/75
[2018-07-21 04:24] LABS: BASOPHILS % (AUTO) 1.1 % (0.0-2.0); EOSINOPHILS % (AUTO) 4.4 % (0.0-6.0); HEMATOCRIT 40 % (39-51); HEMOGLOBIN 13.4 g/dL (13.5-17.5); LYMPHOCYTES # (AUTO) 1.4 /CMM (0.8-4.8); LYMPHOCYTES % (AUTO) 33.3 % (20.0-44.0); MEAN CORPUSCULAR HGB CONC 34 g/dl (31.0-36.0); MEAN CORPUSCULAR VOLUME 90 fL (80-96); MONOCYTES # (AUTO) 0.5 /CMM (0.1-1.30); MONOCYTES % (AUTO) 11.5 % (2.0-12.0); NEUTROPHILS # (AUTO) 2.1 /CMM (1.8-8.9); NEUTROPHILS % (AUTO) 49.7 % (43.0-81.0); PLATELET COUNT (AUTO) 240 /CMM (150-450); WHITE BLOOD COUNT (AUTO) 4.3 K/uL (4.3-11.0)
[2018-07-21 04:41] LABS: CALCIUM, SERUM 8.8 mg/dL (8.5-10.1); CREATININE 1.4 mg/dL (0.6-1.3); MAGNESIUM 1.6 mg/dL (1.8-2.4); PHOSPHORUS 3.2 mg/dL (2.5-4.9)
[2018-07-21 04:49] LABS: THYROID STIMULATING HORMONE 3.363 uIU/mL (0.358-3.74)
--- NOTE | 2018-07-21 07:20 | NUR ---
RN NOTES NO SIGNIFICANT CHANGE OF CONDITION THROUGHOUT THE SHIFT. AFEBRILE. REMAINED COMPLIANT WITH CARE. PATIENT WAITING FOR GALLERY OR MUSEUM CURATOR REGARDING HIS PLACEMENT. ALL NEEDS ATTENDED. CALL LIGHT KEPT WITHIN EASY REACH. AND PROMPTLY ATTENDED. KEPT PT CLEAN AND DRY. ENDORSED CONTINUITY OF CARE TO AM NURSE.
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
[2018-07-21 08:00] VITALS: BP 118/73
[2018-07-21] MEDS: CARVEDILOL 3.125 MG TABLET PO SCH ×2 (08:27→16:06)
[2018-07-21] MEDS: METOPROLOL TARTRATE 50 MG TABLET PO SCH (08:28)
[2018-07-21 09:00] VITALS: BP 118/73
[2018-07-21] MEDS ORDERED: TAMSULOSIN 0.4 MG CAP.SR.24H PO SCH (09:00)
[2018-07-21] MEDS ORDERED: PANTOPRAZOLE 40 MG TABLET.DR PO SCH (09:00)
[2018-07-21] MEDS ORDERED: BENAZEPRIL HCL 20 MG TABLET PO SCH (09:00)
[2018-07-21] MEDS ORDERED: ISOSORBIDE MONONITRATE (30MG) 30 MG TAB.SR.24H PO SCH (09:00)
[2018-07-21] MEDS ORDERED: Magnesium 1GM/D5W 100ML PREMIX 100 ML IV SCH (09:00)
[2018-07-21] MEDS ORDERED: AMIODARONE HCL 200 MG TABLET PO SCH (09:00)
[2018-07-21] MEDS: Magnesium 1GM/D5W 100ML PREMIX 100 ML IV SCH ×2 (09:48→10:47)
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
[2018-07-21] MEDS ORDERED: DIGOXIN 0.125 MG TABLET PO SCH (13:00)
--- NOTE | 2018-07-21 15:56 | NUR ---
BLOW MOLDING MACHINE TENDER NOTES PATIENT GIVEN ALL DISCHARGE PAPERWORK AND EDUCATION. ALL HOME MEDICATION GIVEN FROM RX. VITALS FOLLOWS TEMP 97.5 HR 69 RR 20 O2 96% B/P 94/61. NO PHOTOS TAKEN SKIN INTACT. PATIENT TO GO TO HOMELESS [facility]P WAIVER SIGNED THAT HE WILL ARRANGE HIS OWN HOUSING. TAP CARD GIVEN. PATIENT CONDITION STABLE AT TIME OF DISCHARGE
[2018-07-21 16:00] VITALS: BP 94/61
[2018-07-21] MEDS: RIVAROXABAN 15 MG TABLET PO SCH (16:05)
[2018-07-21 16:10] VITALS: BP 94/61
--- NOTE | 2018-07-21 16:15 | NUR ---
COMMERCIAL SOLAR SALES CONSULTANT NOTES PATIENT LEFT UNIT ON OWN WITH BELONGINGS REFUSED W/C
[2018-07-21] MEDS ORDERED: TRAZODONE 50 MG TABLET PO SCH (22:00)
== END 2018-07-21 16:18 | disposition home or self-care (01) | DRG 308 ==
LOC: ER 11:36 → TELE1 15:58 → MEDSG1 22:00
PROVIDERS: ADMIT Registered Nurse; ATTEND Registered Nurse
DX: I48.91 Unspecified atrial fibrillation (principal); N17.0 Acute kidney failure with tubular necrosis; I13.0 Hypertensive heart and chronic kidney disease with heart failure and stage 1 through stage 4 chronic kidney disease, or unspecified chronic kidney disease; I50.32 Chronic diastolic (congestive) heart failure; Z59.0 Homelessness; Z95.1 Presence of aortocoronary bypass graft; F17.210 Nicotine dependence, cigarettes, uncomplicated; N40.0 Benign prostatic hyperplasia without lower urinary tract symptoms; Z95.810 Presence of automatic (implantable) cardiac defibrillator; E83.42 Hypomagnesemia; N18.9 Chronic kidney disease, unspecified; Z79.01 Long term (current) use of anticoagulants; R07.89 Other chest pain
CPT/HCPCS: 36415; 71045-TC; 80048-TC; 80061-TC; 80076-TC; 80162-TC; 83735-TC; 84100-TC; 84443-TC; 84484-TC; 85025-TC; 85730-TC; 87081-TC; 93307-TC; G0378; J3475; J7030